=== PATIENT | female | born 1940 | race African-American/Black ===

== ENCOUNTER 2018-02-02 15:35 | Emergency (ER) | payer OTHER, MEDICARE ==
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
[2018-02-02 18:29] VITALS: BP 150/93
== END 2018-02-02 18:26 | disposition home or self-care (01) ==
LOC: ER 15:35
DX: S29.011A Strain of muscle and tendon of front wall of thorax, initial encounter (principal); V49.40XA Driver injured in collision with unspecified motor vehicles in traffic accident, initial encounter; E78.00 Pure hypercholesterolemia, unspecified; I10 Essential (primary) hypertension; Z88.6 Allergy status to analgesic agent; Z88.0 Allergy status to penicillin
CPT/HCPCS: 71046; 99283